=== PATIENT | female | born 2000 | race Caucasian/White ===

== ENCOUNTER 2022-08-03 21:31 | Day surgery (SDC) | payer OTHER, SELFPAY ==
[2022-08-03] VITALS (12 sets, daily range): BP systolic 93–128; BP diastolic 53–95; PULSE 79–105; RESP 14–20; TEMP 36.6–37.1; O2SAT 97–100; BMI 22.4
--- NOTE | 2022-08-03 21:43 | PC.NURSE ---
Dr. Peña paged
--- NOTE | 2022-08-03 21:44 | PC.NURSE ---
speaking with Dr. Peña
--- NOTE | 2022-08-03 21:47 | HMH.EDSKAF ---
Discharge Plan Disposition Chief Complaint: Skin/Abscess/Foreign Body Referrals Follow up/Referrals: Erinn Vega APRN [Primary Care Provider] - See instructions Clinical Impressions Clinical Impression: Esophageal foreign body Instructions Patient Instructions: DI for Skin Abscess Discharge ED Provider: John Alexander Skin/Abscess/FB HPI General Chief complaint: Skin/Abscess/Foreign Body Stated complaint: Possible FB in throat chicken Time Seen by Provider: 08/03/22 21:47 Mode of Arrival: Ambulatory Source of Information: Patient, Parent(s) and Medical Record Limitations: No Limitations Description of Symptoms (Recalled from ER Triage Doc. by RN): pt states she was eating dinner at 6:00 tonight and after eating the first bite of shicken, it got stuck and she couldnt get it to go down. History of Present Illness HPI narrative: chicken stuck in throat unable to drink water - has hx of same but no endo required and no prev egd - no medical issues MD complaint: foreign body Onset (ago): hour(s) Severity: moderate Associated symptoms: denies other symptoms Related Data Allergies Allergy/AdvReac Type Severity Reaction Status Date / Time No Known Allergies Allergy Verified 02/20/18 12:28 PFSH PFS Social History Smoking Status: Never smoker alcohol intake: never substance use type: denies use current occupational status: student Travel in the last 8 weeks: None ROS Obtained: Yes All systems reviewed & no additional complaints except as documented Physical Exam General General appearance: alert Head Head exam: normocephalic Eye Eye exam: Present PERRL and EOMI; Absent scleral icterus ENT ENT exam: Present mucous membranes moist Neck Neck exam: Present trachea midline Respiratory Respiratory exam: Present normal lung sounds bilaterally; Absent respiratory distress Cardiovascular Cardiovascular exam: Present regular rate Abdominal Exam Abdominal exam: Present soft Extremities Exam Extremities exam: Present full ROM Neurological Exam Neurological exam: Present alert and CN II-XII intact Psychiatric Psychiatric exam: Present normal affect Skin Skin exam: Absent rash Medical Decision Making Medical Records Medical records reviewed: Yes I reviewed the patient's medical records. Ridge Inquiry Pt receiving controlled substance: No Vital Signs: 08/03/22 21:33 Temperature 97.9 F Temperature Source Oral Respiratory Rate 20 02 Sat by Pulse Oximetry 98 Oxygen Delivery Method Room Air Physician Consults Physician Consulted: daysi Reason -: Pt condition Medical Decision Narrative: has esophageal fb and will be seen by surg for egd Critical Care Time Critical Care Time Critical Care Time: No Attestation: On , the high probability of a clinically significant, sudden or life threatening deterioration of the following system(s) required my full and direct attention, intervention and personal management. The time I documented below is in addition to time spent performing reported procedures but includes the following listed in this critical care notation.
--- NOTE | 2022-08-03 21:48 | PC.NURSE ---
SURGERY TEAM NOTIFIED PER SURGEON REQUEST. PT AWARE OF PLAN FOR REMOVAL OF CHICKEN REMOVAL.
--- NOTE | 2022-08-03 21:49 | PC.NURSE ---
Surgery team paged: [phone]-Evan returned call. [phone]-Gladis returned call. [phone]-Sera returned call.
[2022-08-03 21:53] LABS: Coronavirus 19, PCR Not Detected (NotDetected); Influenza A, PCR Not Detected (NotDetected); Influenza B, PCR Not Detected (NotDetected)
--- NOTE | 2022-08-03 22:05 | PC.NURSE ---
Dr. Peña at BS
[2022-08-03 22:09] LABS: Chloride 103 mmol/L (98-107); Potassium 3.6 mmoL/L (3.5-5.1); Sodium 141 mmol/L (136-145)
[2022-08-03 22:11] LABS: Blood Urea Nitrogen 10 mg/dl (7-17); Creatinine Clearance Estimated 108 mL/min (50-200); Estimated Glomerular Filt Rate 91 ml/min (>60); GFR (African American) 111 ML/MIN (>60)
[2022-08-03 22:12] LABS: Alanine Aminotransferase 16 U/L (12-78); Albumin Level 5.1 g/dl (3.5-5.0); Albumin/Globulin Ratio 1.5 (1.1-1.8); Alkaline Phosphatase 102 U/L (38-126); Anion Gap 15.6 mEq/L (5-15); Aspartate Amino Transferase 30 U/L (14-36); Bilirubin,Total 0.5 mg/dl (0.2-1.3); Calcium 9.1 mg/dl (8.4-10.2); Carbon Dioxide 26 mmol/L (22.0-30.0); Globulin 3.4 g/dL (1.3-3.2); Glucose 99 mg/dl (74-100); Total Protein,Serum 8.5 g/dl (6.3-8.2)
[2022-08-03 22:18] LABS: HCG Qualitative, Serum Negative (Negative)
--- NOTE | 2022-08-03 22:27 | PC.NURSE ---
NO SIGNIFICANT MEDICAL HISTORY.
--- NOTE | 2022-08-03 22:27 | PC.NURSE ---
PT IS UNABLE TO DRINK WATER.
--- NOTE | 2022-08-03 22:28 | P.PN_ITS ---
[facility] Social History (Updated 08/03/22 @ 21:52 by John Alexander MD) Smoking Status: Never smoker alcohol intake: never substance use type: denies use current occupational status: student Travel in the last 8 weeks: None [facility] Anesthesia Checklist Patient Identification Patient Identification: Arm Band and Verbal (Name & ) Structural Data Admitted From: Emergency Dept Planned Operative Procedure/s: EGD Consent for Planned Operative Procedure(s) Verified: Yes Verified Documents: Surgical Consent Additional verifications Patient : No Airway Assessment C-Spine Mobility Assessed: Yes TMJ Mobility Assessed: Yes Dentition: Good Dentition Neurological Assessment Level of Consciousness: Awake, Alert, Appropriate and Follows Commands Anesthesia Plan Anesthesia Risk discussed: Yes ASA Class: II Anesthesia Type: MAC
--- NOTE | 2022-08-03 22:31 | HMH.SCOPE ---
Procedure: Date: 08/03/22 Patient Date of :: 2000 Procedure Performed:: Partial esophagoscopy Indications:: Esophageal foreign body Performing Provider:: Austin Peña MD Referring Provider:: Emergency department/Dr. Alexander Sedation:: Monitored anesthesia care Procedure:: After informed consent was obtained the patient was taken to the endoscopy suite. Sedation ensued after the patient was transferred to the left lateral decubitus position. Pulse, blood pressure, and oxygen saturation were monitored throughout the procedure. The endoscope was advanced into the proximal esophagus. Severe inflammatory mucosal changes noted between 15 and 20 cm. Fairly significant tortuosity also noted. A smooth stricture with concomitant increased tortuosity around 25 cm was noted. Just proximal to this site a focus of fairly significant mucosal injury/went was seen. The endoscope was not able to be safely advanced beyond this point secondary to stricture and also concerns for worsening the mucosal rent or potentially creating an esophageal perforation. No definitive evidence of remaining foreign body was noted. The gastroscope was carefully removed and the patient was transferred to recovery in stable condition. Please see findings and specimens below for detail. Findings:: Severe inflammatory mucosal changes between 15 and 20 cm No definitive evidence of retained foreign body Fairly severe esophageal tortuosity Focal narrowing and increased tortuosity around 25 cm Severe deep focal mucosal rent around 23 cm No definitive evidence of through and through injury Endoscope not able to be safely advanced beyond above-stated area of narrowing Specimens:: None Recommendations:: If she is unable to digest liquids once awakened from anesthesia emergent transfer to tertiary care center will be needed Will require further evaluation at a tertiary center with full endoscopic capabilities /pediatric equipment If symptomatology develops emergent evaluation for possible leak (at tertiary center) will be necessary Complications:: No immediate with the exception of inability to pass endoscope into the gastric lumen. Estimated blood obtained (mL): 0
[2022-08-03 22:33] LABS: Basophils # 0.2 K/mm3 (0-0.2); Basophils % 1.9 % (0.1-2.0); Eosinophils # 0.6 K/mm3 (0.0-0.4); Eosinophils % 5.6 % (0.1-12.0); Hematocrit 44.7 % (37.0-47.0); Hemoglobin 14.7 g/dL (12.2-16.2); Lymphocytes # 3.1 K/mm3 (0.7-4.5); Lymphocytes % 28.8 % (10-50); Mean Corpuscular Hemoglobin 29.3 pg (27.0-31.2); Mean Platelet Volume 7.6 fl (7.4-10.4); Monocytes # 0.6 K/mm3 (0.1-1.0); Monocytes % 5.4 % (1.7-9.3); Neutrophils # 6.2 K/mm3 (1.8-7.8); Neutrophils % 58.2 % (37.0-80.0); Platelet Count 270 K/mm3 (142-424); Red Blood Count 5.02 M/mm3 (4.20-5.40); Red Cell Distribution Width 12.9 % (11.5-17.5); White Blood Count 10.6 K/mm3 (4.5-13.0)
--- NOTE | 2022-08-03 23:25 | SUR.PHASEII ---
2224-MD at bedside, notified pt is unable to take sips of water and swallow completely without spitting back up into emesis bag, lots of thick clear secretions noted. PT denies SOA but frequently spitting into emesis bag. PT awake and talking to staff w/out difficulty, drowsiness noted, MD CODY states he is going to talk to pt's family and ER physician and will update as soon as possible.
[2022-08-04] VITALS (25 sets, daily range): BP systolic 95–138; BP diastolic 51–91; PULSE 75–98; RESP 14–22; TEMP 36.9; O2SAT 95–100
--- NOTE | 2022-08-04 | XR_ITS ---
PROCEDURE INFORMATION: Exam: XR Chest Exam date and time: 08/04/2022 12:18 AM Age: 21 years old Clinical indication: Screening exam; Other screening; Additional info: Forgein object TECHNIQUE: Imaging protocol: Radiologic exam of the chest. Views: 1 view. COMPARISON: No relevant prior studies available. FINDINGS: Lungs: Unremarkable. No consolidation. Pleural spaces: Unremarkable. No pleural effusion. No pneumothorax. Heart/Mediastinum: Unremarkable. No cardiomegaly. Bones/joints: Unremarkable. IMPRESSION: No acute cardiopulmonary process is identified.
--- NOTE | 2022-08-04 00:06 | SUR.PHASEII ---
2241-MD at bedside, MD notified pt that after speaking with her family and ER physician pt would be transferred back to ER for transfer to acute facility for further evaluation. Notified [address] [employer] operations manager of change in plan of care as well as NONA Rogers in ER. 2248-detailed report called to NONA Price at this time who would be assuming care of pt in ER. PT remains alert and talking to staff appropriately, continuing to frequently spit clear secretions into emesis bag, no oral bleeding noted, pt attempted another sip of water and was unable to tolerate, MD aware, pt's vss-NSR on telemety, o2 sats stable and pt denies soa or distress,pt reports some soreness to throat but denies pain, pt's family in waiting room, pt stable 2251-pt transported to ER via stretcher w/fish rails up and left in care of NONA Price with bed locked in lowest position, pt's family at bedside, pt's vss, pt stable at time of discharge from post operative care
--- NOTE | 2022-08-04 01:22 | PC.NURSE ---
ER at speaking with pt about POC
[2022-08-04 01:23] LABS: Lipase 74 U/L (23-300)
--- NOTE | 2022-08-04 02:00 | PC.NURSE ---
[facility] declined pt @ this time
--- NOTE | 2022-08-04 02:37 | PC.NURSE ---
[facility] DECLINED TO ACCEPT PATIENT.
--- NOTE | 2022-08-04 03:14 | PC.NURSE ---
[facility] declined due to no beds @ this time
--- NOTE | 2022-08-04 03:29 | PC.NURSE ---
speaking with Dr. Cardoza with GI at
--- NOTE | 2022-08-04 03:39 | PC.NURSE ---
PT DECLINED BY [facility]. PT/FAMILY UPDATED.
--- NOTE | 2022-08-04 03:49 | PC.NURSE ---
MD at bedside to updated POC
--- NOTE | 2022-08-04 04:47 | PC.NURSE ---
Pt resting in bed with eyes closed. Mother at BS resting. Call light within reach.
--- NOTE | 2022-08-04 05:59 | PC.NURSE ---
Pt attempted to drink water. Pt was able to swallow some water but quickly began to feel the need to burp and had to spit some of the water back out. Pt advised, It just didn't feel right going down .
--- NOTE | 2022-08-04 07:00 | PC.NURSE ---
shift report received by venancio
--- NOTE | 2022-08-04 07:17 | PC.NURSE ---
spoke with family about POC. pt in bed sleeping at this time
--- NOTE | 2022-08-04 08:04 | PC.NURSE ---
Addendum entered by Carla Tubbs RN 08/04/22 08:05: AMA* Original Note: pt family to the nurses station and states pt wants to sign out AM. notified.
--- NOTE | 2022-08-04 08:05 | PC.NURSE ---
placed call to Dr Sánchez in [place], [facility] message
--- NOTE | 2022-08-04 08:13 | PC.NURSE ---
updated pt we are calling dr vick, states they will wait to see what dr vick says
--- NOTE | 2022-08-04 08:19 | PC.NURSE ---
speaking to Dr Sánchez
--- NOTE | 2022-08-04 08:21 | PC.NURSE ---
Dr Alexander on with Dr Sánchez
--- NOTE | 2022-08-04 08:25 | PC.NURSE ---
Dr Alexander spoke with Dr Peña advising Dr Sánchez is attempting to obtain a room for pt.
--- NOTE | 2022-08-04 08:46 | PC.NURSE ---
pt ambulating up to BR mom at , they were both updated on waiting on Dr Gonzalo to let us know if has a bed for her in [facility]
--- NOTE | 2022-08-04 09:11 | PC.NURSE ---
Dr Alexander called back advising Dr Peña had spoke with Dr Sánchez as well and they were working on getting her in at [place], i advised Dr Alexander pt is leaving A.
--- NOTE | 2022-08-04 09:15 | PC.NURSE ---
mom came out and wants to just leave AMA , she feels that [facility] is not the the facility her daughter needs at this time.
--- NOTE | 2022-08-04 09:20 | PC.NURSE ---
This RN to the bedside to speak to pt and mother. pt and mother both state they do not want to wait on the facilitation of a transfer, they want to leave AMA and follow up on their own as an outpatient. risks and education provided by provider and this RN. pt and mother gave verbal understanding of follow up and AMA. This RN advised the importance of follow up with PCP or to seek treatment with any worsening symptoms. mother and daughter verbalize understanding. pt signed AMA form, IV was d/c and pt left the department.
== END 2022-08-04 09:27 | disposition left against medical advice (07) ==
LOC: ER 22:26 → SDC 22:31 → ER 23:57
PROVIDERS: Emergency Medicine; PCP Nurse Practitioner Family; Visit Provider Surgery
PROC: 0DJ08ZZ Inspection of Upper Intestinal Tract, Via Natural or Artificial Opening Endoscopic (ICD-10-PCS; CPT 43235; principal; 2022-08-03 22:00)
DX: K22.2 Esophageal obstruction (principal)
CPT/HCPCS: 43200; 71045; 80053; 83690; 84703; 85025; C9803; U0003; U0005

== ENCOUNTER 2022-12-28 09:03 | Emergency (ER) | payer OTHER, SELFPAY ==
[2022-12-28 09:10] VITALS: BP 142/90; PULSE 89; RESP 20; TEMP 36.7; O2SAT 100; BMI 20.9
--- NOTE | 2022-12-28 09:15 | EXP.UTC ---
Discharge Plan Disposition Patient Disposition: Home, Self-Care Condition: Good Prescriptions Prescriptions: New ondansetron 4 mg Tablet,Disintegrating 4 mg PO Q8H PRN (Reason: Nausea) Qty: 12 0RF No Action lansoprazole 30 mg tablet,disintegrat, delay rel 30 mg PO DAILY Referrals Follow up/Referrals: Jatin Jennings MD [Primary Care Provider] - See instructions Activity Restrictions/Add. Instructions Additional Instructions/Restrictions: Drink plenty of fluids. Take tylenol or ibuprofen for pain or fever. Take the medications as directed. Follow up with your regular doctor. GO TO THE ER FOR ANY WORSENING SYMPTOMS Clinical Impressions Clinical Impression: Acute viral syndrome Stand Alone Forms Stand Alone Forms: Work/School Release Instructions Patient Instructions: DI for Viral Syndrome, Ondansetron Discharge ED Provider: Pierre Christensen [facility] HPI General Stated complaint: headache,fever,stomach pain Time Seen by Provider: 12/28/22 09:15 History of Present Illness Provider Complaint: She states that for the past 2 days she has had nausea and diarrhea. She has had a headache also. Related Data Home Medications Medication Instructions Recorded Confirmed lansoprazole 30 mg delayed 30 mg PO DAILY GERD 12/28/22 12/28/22 release,disintegrating tablet Previous Rx's Medication Instructions Recorded ondansetron 4 mg disintegrating 4 mg PO Q8H PRN Nausea #12 tabs 12/28/22 tablet Allergies Allergy/AdvReac Type Severity Reaction Status Date / Time No Known Allergies Allergy Verified 12/28/22 09:26 [facility] Disclaimer: The information contained in this section may have been updated after the patient was seen, as this information can be updated by other users. Social History Smoking Status: Never smoker alcohol intake: never substance use type: denies use current occupational status: student Travel in the last 8 weeks: None ROS Obtained: Yes All systems reviewed & no additional complaints except as documented Constitutional Constitutional: Reports chills and Reports fever(s) Eyes Eyes: Denies eye discharge ENT Ears, Nose, Mouth, and Throat: Reports as per HPI Cardiovascular Cardiovascular: Denies chest pain Respiratory Respiratory: Denies chest congestion and Reports cough Gastrointestinal Gastrointestingal: Reports nausea; Denies abdominal pain, constipation, cramping, diarrhea or vomiting Musculoskeletal Musculoskeletal: Denies arthralgias Integumentary/Breasts Skin/Breast: Denies rash Neurologic Neurologic: Denies paresthesias Physical Exam General General appearance: alert and in no apparent distress Head Head exam: atraumatic, normocephalic and normal inspection Eye Eye exam: Present normal appearance, PERRL and EOMI ENT ENT exam: Present normal exam, normal oropharynx, mucous membranes moist, TM's normal bilaterally and normal external ear exam Neck Neck exam: Present normal inspection, full ROM and trachea midline; Absent meningismus or lymphadenopathy Chest Chest inspection: Present normal inspection and symmetric chest wall rise; Absent tenderness Respiratory Respiratory exam: Present normal lung sounds bilaterally; Absent respiratory distress Cardiovascular Cardiovascular exam: Present regular rate and normal rhythm; Absent JVD Abdominal Exam Abdominal exam: Present soft and normal bowel sounds; Absent distention, tenderness or guarding Extremities Exam Extremities exam: Present normal inspection, full ROM and normal capillary refill; Absent calf tenderness Back Exam Back exam: Present normal inspection; Absent tenderness Neurological Exam Neurological exam: Present alert and oriented X3 Psychiatric Psychiatric exam: Present normal affect and normal mood Skin Skin exam: Present warm, dry, intact and normal color Lymphatic Lymphatic Findings: no adenopathy Medical Decisio
[2022-12-28 09:40] VITALS: BP 142/90; PULSE 89; RESP 20; TEMP 36.7; O2SAT 100
== END 2022-12-28 09:40 | disposition home or self-care (01) ==
PROVIDERS: Emergency Provider Nurse Practitioner Family; PCP Internal Medicine Adolescent Medicine
DX: B34.9 Viral infection, unspecified (principal); R51.9 Headache, unspecified; R50.9 Fever, unspecified; R10.9 Unspecified abdominal pain; R19.7 Diarrhea, unspecified
CPT/HCPCS: 99212; 99213; G0463

== ENCOUNTER 2023-02-18 11:06 | Emergency (ER) | payer OTHER, SELFPAY ==
[2023-02-18 11:07] VITALS: BP 145/83; PULSE 91; RESP 20; TEMP 36.7; O2SAT 99; BMI 21.2
--- NOTE | 2023-02-18 11:08 | EXP.UTC ---
Discharge Plan Disposition Patient Disposition: Home, Self-Care Condition: Good Prescriptions Prescriptions: New amoxicillin [amoxicillin] 400 mg/5 mL suspension for reconstitution 500 mg PO TID 10 Days Qty: 187.5 0RF [id number] [Bromfed DM] 2-30-10 mg/5 mL Syrup 5 ml PO Q6H PRN (Reason: Cough) Qty: 240 0RF prednisolone [Prednisolone] 15 mg/5 mL solution 15 mg PO BID 3 Days Qty: 30 0RF No Action lansoprazole 30 mg tablet,disintegrat, delay rel 30 mg PO DAILY Referrals Follow up/Referrals: Erinn Vega APRN [Primary Care Provider] - See instructions Activity Restrictions/Add. Instructions Additional Instructions/Restrictions: Drink plenty of fluids. Take tylenol or ibuprofen for pain or fever. Take the medications as directed. Follow up with your regular doctor. GO TO THE ER FOR ANY WORSENING SYMPTOMS Throw your tooth brush away and get a new one. Clinical Impressions Clinical Impression: Strep throat Instructions Patient Instructions: Strep Throat, DI for Strep Throat Discharge ED Provider: Pierre Christensen [facility] General Stated complaint: sore throat,tired Time Seen by Provider: 02/18/23 11:08 History of Present Illness Provider Complaint: She states that for the past 2 days she has had sore throat, chills, and malaise. She feels like she has strep throat. Related Data Home Medications Medication Instructions Recorded Confirmed lansoprazole 30 mg delayed 30 mg PO DAILY GERD 12/28/22 02/18/23 release,disintegrating tablet Previous Rx's Medication Instructions Recorded amoxicillin 400 mg/5 mL oral 500 mg (6.25 mL) PO TID 10 days 02/18/23 suspension #187.5 mL [id number]-[id number]-IP 5 ml PO Q6H PRN Cough #240 mL 02/18/23 2 mg-30 mg-10 mg/5 mL oral syrup (Bromfed DM) prednisolone 15 mg/5 mL oral 15 mg (5 mL) PO BID 3 days #30 mL 02/18/23 solution Allergies Allergy/AdvReac Type Severity Reaction Status Date / Time No Known Allergies Allergy Verified 02/18/23 11:19 [facility] Disclaimer: The information contained in this section may have been updated after the patient was seen, as this information can be updated by other users. Social History Smoking Status: Never smoker alcohol intake: never substance use type: denies use current occupational status: student Travel in the last 8 weeks: None ROS Obtained: Yes All systems reviewed & no additional complaints except as documented Constitutional Constitutional: Reports chills and Reports fever(s) Eyes Eyes: Denies eye discharge ENT Ears, Nose, Mouth, and Throat: Reports as per HPI Cardiovascular Cardiovascular: Denies chest pain Respiratory Respiratory: Denies chest congestion and Reports cough Gastrointestinal Gastrointestingal: Reports nausea; Denies abdominal pain, constipation, cramping, diarrhea or vomiting Musculoskeletal Musculoskeletal: Denies arthralgias Integumentary/Breasts Skin/Breast: Denies rash Neurologic Neurologic: Denies paresthesias Physical Exam General General appearance: alert and in no apparent distress Head Head exam: atraumatic, normocephalic and normal inspection Eye Eye exam: Present normal appearance, PERRL and EOMI ENT ENT exam: Present mucous membranes moist and normal external ear exam Expanded ENT Exam TM/Canal exam: Bilateral TM: erythema and bulging Nose exam: Absent sinus tenderness Mouth exam: Present normal external inspection; Absent drooling Teeth exam: Present normal inspection Throat exam: Present tonsillar erythema, tonsillomegaly and tonsillar exudate Neck Neck exam: Present normal inspection, full ROM and trachea midline; Absent tenderness, meningismus or lymphadenopathy Chest Chest inspection: Present normal inspection and symmetric chest wall rise; Absent tenderness Respiratory Respiratory exam: Present normal lung sounds bilateral
[2023-02-18 11:34] LABS: UTC Strep Screen (Rapid) Positive (Negative)
[2023-02-18 11:41] VITALS: BP 145/83; PULSE 91; RESP 20; TEMP 36.7; O2SAT 99
== END 2023-02-18 11:41 | disposition home or self-care (01) ==
PROVIDERS: Emergency Provider Nurse Practitioner Family; PCP Nurse Practitioner Family
DX: J02.0 Streptococcal pharyngitis (principal); R53.81 Other malaise
CPT/HCPCS: 87880; 99212; 99214; G0463